=== PATIENT | male | born 1930 | race Caucasian/White ===

== ENCOUNTER → 2017-01-28 | Day surgery (SDC) | payer MEDICARE, BC | LOC: MSO 09:16 | DX: H26.492 Other secondary cataract, left eye (principal) ==

== ENCOUNTER → 2020-06-27 | Outpatient (CLI) | payer MEDICARE, BC ==
[~2020-06-27] MED LIST: AMITRIPTYLINE H50 M1 PO; ASPIRIN 81M81 MG/TA2 PO; COREG12.5 M1 PO; DOXYCYCLINE MO100 M3 PO; ELIQUIS5 MG PO; FISH OIL 1000MG1 CAP PO; FLUTICASON0.05 MG/AC NS; GLUCOTROL10 M2 PO; GOOD SENSE ALLE10 MG PO; ISOSORBIDE MONO60 M2 PO; LEVOTHYROXINE0.05 MG PO; LIPITOR 40MG TA40 MG PO; MAGNESIUM400 MG PO; NITROSTAT0.4 M1 SL; PROAIR HFA0.09 MG/AC IH; PROTONIX TR40 M1 PO; TORSEMIDE20 M1 PO; TRAMADOL 50 MG TAB PO; TYLENOL325 M1 PO
== END ==
LOC: RAD 11:35
DX: M19.042 Primary osteoarthritis, left hand (principal)

== ENCOUNTER 2020-06-29 11:39 | Emergency (ER) | payer MEDICARE, BC ==
[2020-06-29 12:00] VITALS: BP 150/84
[2020-06-29] MEDS ORDERED: TRAMADOL 50 MG TAB PO (14:14)
[2020-06-29] MEDS ORDERED: DOXYCYCLINE MO100 M3 PO (14:14)
[2020-06-29] MEDS ORDERED: LEVOTHYROXINE0.05 MG PO (14:15)
[2020-06-29] MEDS ORDERED: ASPIRIN 81M81 MG/TA2 PO (14:16)
[2020-06-29] MEDS ORDERED: GLUCOTROL10 M2 PO (14:16)
[2020-06-29] MEDS ORDERED: PROTONIX TR40 M1 PO (14:16)
[2020-06-29] MEDS ORDERED: COREG12.5 M1 PO (14:17)
[2020-06-29] MEDS ORDERED: ISOSORBIDE MONO60 M2 PO (14:17)
[2020-06-29] MEDS ORDERED: LIPITOR 40MG TA40 MG PO (14:18)
[2020-06-29] MEDS ORDERED: MAGNESIUM400 MG PO (14:18)
[2020-06-29] MEDS ORDERED: ELIQUIS5 MG PO (14:18)
[2020-06-29] MEDS ORDERED: FISH OIL 1000MG1 CAP PO (14:19)
[2020-06-29] MEDS ORDERED: AMITRIPTYLINE H50 M1 PO (14:19)
[2020-06-29] MEDS ORDERED: TORSEMIDE20 M1 PO (14:19)
[2020-06-29] MEDS ORDERED: TYLENOL325 M1 PO (14:20)
[2020-06-29] MEDS ORDERED: GOOD SENSE ALLE10 MG PO (14:20)
[2020-06-29] MEDS ORDERED: FLUTICASON0.05 MG/AC NS (14:21)
[2020-06-29] MEDS ORDERED: PROAIR HFA0.09 MG/AC IH (14:21)
[2020-06-29] MEDS ORDERED: NITROSTAT0.4 M1 SL (14:22)
== END 2020-06-29 12:01 | disposition still patient (30) ==
LOC: ED 11:39
DX: T14.90XA Injury, unspecified, initial encounter (principal); Z53.21 Procedure and treatment not carried out due to patient leaving prior to being seen by health care provider; X58.XXXA Exposure to other specified factors, initial encounter

== ENCOUNTER → 2020-06-29 | Outpatient (CLI) | payer MEDICARE, BC ==
[~2020-06-29] VITALS: Ht 160 cm; Wt 69.5 kg
[2020-06-29 12:00] VITALS: BP 150/84
[2020-06-29 12:16] LABS: BASO # 0.1 (0.02-0.10); EOS # 0.2 (0.04-0.40); EOS % 3.6 % (0.0-4.0); HEMATOCRIT 40.1 % (42.0-52.0); HEMOGLOBIN 12.9 g/dL (13.5-18.0); LYMPH# 1.5 (1.50-4.00); MEAN CELL VOLUME 96 fl (78-100); MEAN CORPUSCULAR HEMOGLOBIN 31 pg (27-31); MEAN CORPUSCULAR HGB CONC 32 g/dL (33-37); MEAN PLATELET VOLUME 10.4 fl (7.4-10.4); MONO # 0.5 (0.20-0.80); NEU # 4.1 (1.40-6.50); PLATELET COUNT 153 K/mm3 (130-400); RED BLOOD COUNT 4.16 M/mm3 (4.20-5.60); RED CELL DISTRIBUTION WIDTH 14.9 % (11.5-14.5); WHITE BLOOD COUNT 6.4 K/mm3 (4.8-10.8)
[2020-06-29 12:24] LABS: ALBUMIN 3.8 g/dL (3.4-4.8); POTASSIUM 4.6 mmol/L (3.5-5.1)
[2020-06-29 12:25] LABS: CALCIUM 8.6 mg/dL (8.3-10.5)
[2020-06-29 12:27] LABS: TOTAL PROTEIN 6.7 g/dL (6.2-8.1)
[2020-06-29 12:29] LABS: TOTAL BILIRUBIN 0.6 mg/dL (0.2-1.2)
[2020-06-29 13:09] LABS: ERYTHROCYTE SEDIMENTATION RATE 27 mm/hr (0-20)
== END ==
LOC: AMSURD 10:20 → LAB 10:20
PROVIDERS: Physician Assistant
DX: Z95.0 Presence of cardiac pacemaker (principal)